=== PATIENT | female | born 2000 | race Caucasian/White ===

== ENCOUNTER 2024-05-30 13:04 | Outpatient (AMB) | payer OTHER, SELFPAY ==
[2024-05-30 13:10] VITALS: BMI 35.3
--- NOTE | 2024-05-30 13:10 | A.OFFVIS_ITS ---
VS Expanded 05/30/24 13:10 06/05/24 11:12 Height 5 ft 3 in 5 ft 3 in Weight 199 lb 1.239 oz 199 lb BMI 35.3 35.2 Intake Visit Reasons: OBESITY/CONFIRMED Nutrition Presentation Details: Pt presents for MNT for obesity. The Pt presents with the mom during this appt. The Pt was referred by Dr. Olivier Sequeira, from [facility] Pt and mom reports Pt had brain surgery in 2013 (due to hematoma ), prior to surgery Pt was at 110 lbs and reports that after surgery weight increased to 200lbs, both Pt and mom reports weight gain related to binge eating. Pt denies vomiting or other means of purging Pt reports in the past was taking ? vivonex but was stopped due to hair loss Pt reports having pending appt with corrosion control fitter , psychiatrist ETOH- denies smoking- denies physical activity: sedentary BS Monitoring Most Recent Diabetes Results: No Data to Display EBT-Rywqeea-Rb.Jeor Equation Height: 5 ft 3 in Weight: 199 lb Resting Metabolic Rate: 1622.79 Calculated Activity Level: Sedentary Calories Needed to Maintain Weight: 1947.35 Diagnosis Nutrition problem #1: excessive energy intake As related to (etiology) #1: diagnosis As evidenced by (sign/symptom) #1: knowledge deficit of diet (statements of binge eating episodes) Monitoring/Goals Nutrition problem monitoring: level of knowledge/skill (reduction of binge eating episodes) [facility] Medical History (Updated 06/05/24 @ 11:29 by Amanda Hawk, RD, LDN) [place] Assessment & Plan Assessment & Plan (1) Obesity (BMI 30.0-34.9): Comment: 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 Code(s): E66.9 - Obesity, unspecified Category: Medical Plan: Wt: 90 Kg ( 05/2024 ) Est kcal needs as per MSJ: <2000 (40% carb, 30% protein/fat) Est fluid needs as per 25-30 ml/d: 2700 Est prot per day as per 1 g/kg bw: 90 GOAL: Work on Prevention of further weight gain by next follow up Recommend fiber intake : 8-10 g per day and gradually increase to 25-28 g per day for women and 35-38 g for men or as tolerated Recommend sodium intake per day : less than 2000 mg Educated patient on: ( R = reviewed V = verbalizes understanding N/R = needs review N/A = not applicable Today focused on listening to Pt's concerns and eating patterns, medical hx * Food sources of carbohydrate, adequate serving sizes and its role in various health conditions: R V N/R * Differences between complex carbohydrates a simple carbohydrates, role of fiber in diet: R V N/R * Lean protein sources of foods: R V NR * Differences between types of fats and role in diet (mono on saturated fat fatt y acids, saturated fatty acids, trans fats): R V N/R * Food sources of sodium in salt and healthy modifications for heart health in kidney health: R V R/V * Vitamins and minerals: R V N/R * Healthy plate method concept: R V N/R * Physical activity: Benefits a precaution: R V N/R Patient Instructions: Work on eating slowly - keep a food log with every food/beverage consumed and times of the day Replace 2 pastries with 2 fruits (150 suma vs 100 suma) Have water with meals/snacks, no sugar containing beverages Coding Level of Care Code Nutr Indiv Intake (45945) Diagnoses Obesity (BMI 30.0-34.9) E66.9 Time Spent (min) 30
[2024-06-05 11:12] VITALS: BMI 35.2
== END 2024-05-30 13:50 | disposition home or self-care (01) ==
PROVIDERS: PCP Pediatrics; Visit Provider Dietitian, Registered
DX: E66.9 Obesity, unspecified (principal)

== ENCOUNTER → 2024-05-30 13:04 | Outpatient (BNVA) | payer OTHER, SELFPAY | PROVIDERS: PCP Pediatrics; Visit Provider Dietitian, Registered | DX: E66.9 Obesity, unspecified (principal); Z68.35 Body mass index [BMI] 35.0-35.9, adult; Z71.3 Dietary counseling and surveillance | CPT/HCPCS: 97802 ==

== ENCOUNTER 2024-07-10 11:40 | Outpatient (AMB) | payer OTHER, SELFPAY ==
[2024-07-10 11:50] VITALS: BMI 35.9
--- NOTE | 2024-07-10 11:50 | MHC.AMNUTRGE ---
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 Today Pt reports she is contemplating exercise prog, -Pt drives Pt reports working on keeping a food journal on and off- forgot it today - working on mindful eating - has episodes of binge eating , no purging 2 -3 x/wk BS Monitoring Most Recent Diabetes Results: No Data to Display [facility] Medical History (Updated 07/17/24 @ 14:13 by Amanda Hawk, RD, LDN) [place] Assessment & Plan Assessment & Plan (1) Obesity (BMI 30.0-34.9): Code(s): E66.9 - Obesity, unspecified Category: Medical Plan: Wt: 90 Kg ( 05/2024 ), 92 kg (07/2024) Est kcal needs as per MSJ: <2000 (40% carb, 30% protein/fat) Est fluid needs as per 25-30 ml/d: 2700 Est prot per day as per 1 g/kg bw: 90 GOAL: Work on Prevention of further weight gain by next follow up Recommend fiber intake : 8-10 g per day and gradually increase to 25-28 g per day for women and 35-38 g for men or as tolerated Recommend sodium intake per day : less than 2000 mg Educated patient on: ( R = reviewed V = verbalizes understanding N/R = needs review N/A = not applicable Today focused on listening to Pt's concerns and eating patterns, medical hx Food sources of carbohydrate, adequate serving sizes and its role in various health conditions: R V N/R Differences between complex carbohydrates a simple carbohydrates, role of fiber in diet: R V N/R Lean protein sources of foods: R Differences between types of fats and role in diet (mono on saturated fat fatty acids, saturated fatty acids, trans fats): R V N/R Food sources of sodium in salt and healthy modifications for heart health in kidney health: R V R/V Vitamins and minerals: R V N/R Healthy plate method concept: R Physical activity: Benefits a precaution: R V N/R Patient Instructions: Reduction of pastries/cookie- by choosing a fruit instead . Engage in physical activity, walk 30 minutes daily unless otherwise specified by your doctor. Coding Level of Care Code Nutr Indiv Subseq (18918) Diagnoses Obesity (BMI 30.0-34.9) E66.9 Time Spent (min) 20
== END 2024-07-10 12:19 | disposition home or self-care (01) ==
PROVIDERS: PCP Pediatrics; Visit Provider Dietitian, Registered
DX: E66.9 Obesity, unspecified (principal)

== ENCOUNTER → 2024-07-10 11:40 | Outpatient (BNVA) | payer OTHER, SELFPAY | PROVIDERS: PCP Pediatrics; Visit Provider Dietitian, Registered | DX: E66.9 Obesity, unspecified (principal); Z68.35 Body mass index [BMI] 35.0-35.9, adult; Z71.3 Dietary counseling and surveillance | CPT/HCPCS: 97803 ==

== ENCOUNTER 2024-08-14 11:36 | Outpatient (AMB) | payer OTHER, SELFPAY ==
[2024-08-14 11:42] VITALS: BMI 34.8
--- NOTE | 2024-08-14 11:42 | A.OFFVIS_ITS ---
VS Expanded 08/14/24 11:42 Height 5 ft 3 in Weight 196 lb 6.91 oz BMI 34.8 Intake Visit Reasons: Obesity/CONFIRMED Medication List - Last Reconciled 08/22/[address], LDN lisdexamfetamine (Vyvanse) 10 mg PO DAILY Nutrition Presentation Details: Pt presents for MNT f/u for obesity. Pt reports working on keeping scheduled meal pattern 7:30 am cereal/milk or sandwich/milk 12:rice/cucumber 6:30 potato/chicken/salad snack 1-2 a day , choosing fruit or yogurt Physical activity: 10 minutes 3 times a week at home (walking dog) has gym membership Pt is on vyvanse and Pt is concerned of hair loss as this was a side effect fr om vyvanse in the past BS Monitoring Most Recent Diabetes Results: No Data to Display [facility] Medical History (Updated 07/17/24 @ 14:[address], LDN) [place] Assessment & Plan Assessment & Plan (1) Obesity (BMI 30.0-34.9): Code(s): E66.9 - Obesity, unspecified Category: Medical Plan: Wt: 90 Kg ( 05/2024 ), 92 kg (07/2024), 89 kg (09/06) Est kcal needs as per MSJ: <2000 (40% carb, 30% protein/fat) Est fluid needs as per 25-30 ml/d: 2700 Est prot per day as per 1 g/kg bw: 90 GOAL: Work on Prevention of further weight gain by next follow up Recommend fiber intake : 8-10 g per day and gradually increase to 25-28 g per day for women and 35-38 g for men or as tolerated Recommend sodium intake per day : less than 2000 mg Educated patient on: ( R = reviewed V = verbalizes understanding N/R = needs review N/A = not applicable Today focused on listening to Pt's concerns and eating patterns, medical hx * Food sources of carbohydrate, adequate serving sizes and its role in various health conditions: R V N/R * Differences between complex carbohydrates a simple carbohydrates, role of fiber in diet: R V N/R * Lean protein sources of foods: R * Differences between types of fats and role in diet (mono on saturated fat fa tty acids, saturated fatty acids, trans fats): R V N/R * Food sources of sodium in salt and healthy modifications for heart health in kidney health: R V R/V * Vitamins and minerals: R V N/R * Healthy plate method concept: R * Physical activity: Benefits a precaution: R V N/R Patient Instructions: Work on increasing walks to 30 minutes at least 3 times a week Continue with meal schedule (7:30 am breakfast, 12 pm, lunch 6: 30 pm meal , 8 pm snack ) Follow healthy plate method at lunch , including at least 3 oz of protein at lunch by reducing portion of starch and including 3 oz of chicken or 2 oz of chicken and 1 cup of milk /yogurt) Coding Level of Care Code Nutr Indiv Subseq (05507) Diagnoses Obesity (BMI 30.0-34.9) E66.9 Time Spent (min) 30
== END 2024-08-14 12:13 | disposition home or self-care (01) ==
PROVIDERS: PCP Pediatrics; Visit Provider Dietitian, Registered
DX: E66.9 Obesity, unspecified (principal)

== ENCOUNTER → 2024-08-14 11:36 | Outpatient (BNVA) | payer OTHER, SELFPAY | PROVIDERS: PCP Pediatrics; Visit Provider Dietitian, Registered | DX: E66.9 Obesity, unspecified (principal); Z68.34 Body mass index [BMI] 34.0-34.9, adult; Z71.3 Dietary counseling and surveillance | CPT/HCPCS: 97803 ==

== ENCOUNTER 2024-09-24 11:12 | Outpatient (AMB) | payer OTHER, SELFPAY ==
--- NOTE | 2024-09-24 11:51 | A.OFFVIS_ITS ---
VS Expanded 09/24/24 11:53 Height 5 ft 3 in Weight 197 lb 8.547 oz BMI 35.0 Intake Visit Reasons: obesity Nutrition Presentation Details: Pt presnts for MNT f/u for obesity Pt reports feeling more comfortable following meal schedule for the most part Has not started physical activity routine BS Monitoring Most Recent Diabetes Results: No Data to Display [facility] Medical History (Updated 07/17/24 @ 14:[address], LDN) [place] Assessment & Plan Assessment & Plan (1) Obesity (BMI 30.0-34.9): Code(s): E66.9 - Obesity, unspecified Category: Medical Plan: Wt: 90 Kg ( 05/2024 ), 92 kg (07/2024), 89 kg (09/06), 10/07 Est kcal needs as per MSJ: <2000 (40% carb, 30% protein/fat) Est fluid needs as per 25-30 ml/d: 2700 Est prot per day as per 1 g/kg bw: 90 GOAL: Work on Prevention of further weight gain by next follow up Recommend fiber intake : 8-10 g per day and gradually increase to 25-28 g per day for women and 35-38 g for men or as tolerated Recommend sodium intake per day : less than 2000 mg Educated patient on: ( R = reviewed V = verbalizes understanding N/R = needs review N/A = not applicable Today focused on listening to Pt's concerns and eating patterns, medical hx * Food sources of carbohydrate, adequate serving sizes and its role in various health conditions: R V N/R * Differences between complex carbohydrates a simple carbohydrates, role of fiber in diet: R * Lean protein sources of foods: R * Differences between types of fats and role in diet (mono on saturated fat fatty acids, saturated fatty acids, trans fats): R V N/R * Food sources of sodium in salt and healthy modifications for heart health in kidney health: R V R/V * Vitamins and minerals: R V N/R * Healthy plate method concept: R * Physical activity: Benefits a precaution: R V N/R Patient Instructions: Incorporate whole grain (brown rice or sweet potato at lunch following healthy plate method) Engage in physical activity 3 times a week for 30-45 minutes as a routine Coding Level of Care Code Nutr Indiv Subseq ([id number]) Diagnoses Obesity (BMI 30.0-34.9) E66.9 Time Spent (min) 25
[2024-09-24 11:53] VITALS: BMI 35.0
== END 2024-09-24 12:25 | disposition home or self-care (01) ==
PROVIDERS: PCP Pediatrics; Visit Provider Dietitian, Registered
DX: E66.9 Obesity, unspecified (principal)

== ENCOUNTER → 2024-09-24 11:12 | Outpatient (BNVA) | payer OTHER, SELFPAY | PROVIDERS: PCP Pediatrics; Visit Provider Dietitian, Registered | DX: E66.9 Obesity, unspecified (principal); Z68.35 Body mass index [BMI] 35.0-35.9, adult; Z71.3 Dietary counseling and surveillance | CPT/HCPCS: 97803 ==

== ENCOUNTER 2024-12-26 11:07 | Outpatient (AMB) | payer OTHER, SELFPAY ==
[2024-12-26 11:11] VITALS: BMI 35.7
--- NOTE | 2024-12-26 11:11 | A.OFFVIS_ITS ---
VS Expanded 12/26/24 11:11 Height 5 ft 3 in Weight 201 lb 8.04 oz BMI 35.7 Intake Visit Reasons: obesity Nutrition Presentation Details: Pt presents for MNT for obesity physical activity 1x/wk working on having 3 scheduled meals per day, has challenges with portion sizes BS Monitoring Most Recent Diabetes Results: No Data to Display [facility] Medical History (Updated 07/17/24 @ 14:13 by Amanda Hawk, RD, LDN) [place] Assessment & Plan Assessment & Plan (1) Obesity (BMI 30.0-34.9): Code(s): E66.9 - Obesity, unspecified Category: Medical Plan: Wt: 90 Kg ( 05/2024 ), 92 kg (07/2024), 89 kg (09/06), 10/07, 91 kg (01/08) Est kcal needs as per MSJ: <2000 (40% carb, 30% protein/fat) Est fluid needs as per 25-30 ml/d: 2700 Est prot per day as per 1 g/kg bw: 90 GOAL: Work on Prevention of further weight gain by next follow up Recommend fiber intake : 8-10 g per day and gradually increase to 25-28 g per day for women and 35-38 g for men or as tolerated Recommend sodium intake per day : less than 2000 mg Educated patient on: ( R = reviewed V = verbalizes understanding N/R = needs review N/A = not applicable Today focused on listening to Pt's concerns and eating patterns, medical hx * Food sources of carbohydrate, adequate serving sizes and its role in various health conditions: R * Differences between complex carbohydrates a simple carbohydrates, role of fiber in diet: R * Lean protein sources of foods: R * Differences between types of fats and role in diet (mono on saturated fat fatty acids, saturated fatty acids, trans fats): R V N/R * Food sources of sodium in salt and healthy modifications for heart health in kidney health: R V R/V * Vitamins and minerals: R V N/R * Healthy plate method concept: R * Physical activity: Benefits a precaution: R V N/R Patient Instructions: Continue working on having 3 balanced meals per day following healthy plate method see 2000 calorie (est) meal plan Coding Level of Care Code Nutr Indiv Subseq (07272) Diagnoses Obesity (BMI 30.0-34.9) E66.9 Time Spent (min) 20
--- OUTSIDE RECORDS SUMMARY | 2024-12-26 13:01 | XMS_ITS | Continuity of Care Document ---
Author Organization [facility] Address [address] [place] [id number]- Care Team Providers Care Auto Crane Driver Name Role Phone Hua VASQUEZ, Leonora Primary Care Physician [phone] Encounter [facility] Date(s): 12/10/24 - 12/17/24 [facility] [address] [place] [id number] Encounter Diagnosis Severe obesity (BMI 35.0-39.9) with comorbidity(Discharge Diagnosis) - 12/10/24 Attending Physician: Mary VASQUEZ Shanika Encounter Type: Office Visit Allergies, Adverse Reactions, Alerts Substance Criticality Severity Reaction Reaction Severity Status amoxicillin Active Medications clonazepam 1 mg oral tablet, disintegrating See Instructions, 1 tablet between cheek and gums prn seizure greater than 3 minutes. Two labelled bottles, # 4 tablet, 0 Refills, Maintenance, 07/20/16 4:26:45 PM EDT Start Date: 07/20/16 Status: Ordered Quantity: 4.0 Unit: tablet Repeat number: 1 dexamethasone 1 mg oral tablet 1 tablet = 1 mg, By Mouth, Once, to be taken at 11pm and blood work at 8am next day, # 1 tablet, 0 Refills, Soft Stop, 07/09/24 1:42:00 PM EDT, [facility]/pharmacy #[id number], Partial fill upon patient request ifthe prescription is for a schedule II opioid drug., 160.1, cm, 07/09/24 13:07:00 EDT, Height Start Date: 07/09/24 Status: Ordered Quantity: 1.0 Unit: tablet Repeat number: 1 Indication: Irregular menstruation, unspecified lacosamide 100 mg oral tablet 1 tablet = 100 mg, By Mouth, 2 times a day, Take with 50mg tab in PM for daily dose of 100mg in AM - 150mg in PM., # 60 tablet, 5 Refills, Maintenance, 07/11/18 4:33:50 PM EDT Start Date: 07/11/18 Stop Date: 01/07/19 Status: Ordered Quantity: 60.0 Unit: tablet Repeat number: 6 LaMICtal 25 mg oral tablet 25 mg, 1, tablet, By Mouth, 2 times a day, # 180 tablet, Refills 0, Tot. Refills 0, Maintenance, 06/01/21 3:09:00 PM EDT, Do Not Route, Partial fill upon patient request if the prescription is for a schedule II opioid drug. Start Date: 06/01/21 Status: Ordered Quantity: 180.0 Unit: tablet Repeat number: 1 Nystatin Powder Topically, 0 Refills, Maintenance Start Date: 07/09/24 Status: Ordered Repeat number: 1 PROzac 10 mg oral capsule 10 mg, 1, capsule, By Mouth, Daily, Refills 0, Maintenance, 07/09/24 1:06:00 PM EDT, Partial fill upon patient request if the prescription is for a schedule II opioid drug. Start Date: 07/09/24 Status: Ordered Repeat number: 1 Tretinoin = 22.5 mg/m2, By Mouth, 2 times a day, 0 Refills, Maintenance, 07/09/24 1:06:00 PM EDT, Partial fillupon patient request if the prescription is for a schedule II opioid drug. Start Date: 07/09/24 Status: Ordered Repeat number: 1 Vimpat 100 mg oral tablet 1 tablet = 100 mg, By Mouth, 2 times a day, 0 Refills, Maintenance, 01/15/20 3:50:00 PM EST Start Date: 01/15/20 Status: Ordered Repeat number: 1 Vitamin D3 By Mouth, 0 Refills, Maintenance, 12/29/18 2:01:23 PM EST Start Date: 12/29/18 Status: Ordered Repeat number: 1 Vyvanse 20 mg oral capsule 1 capsule = 20 mg, By Mouth, Daily in AM, # 60 capsule, 0 Refills, Maintenance, 01/07/22 3:32:00 PM EST, Capsule, [id number], Partial fill upon patient request if the prescription is for a schedule II opioid drug., 160.2, cm, 01/07/22 14:44:00 EST, Height, 76.1, kg, 01/07/22 14:44:00 EST, Dry Weight Start Date: 01/07/22 Status: Ordered Quantity: 60.0 Unit: capsule Repeat number: 1 Zepbound 2.5 mg/0.5 mL subcutaneous solution = 2.5 mg, Subcutaneous Injection, Every week, rotate injection sites, # 4 each, 3 Refills, Maintenance, 12/10/24 2:09:00 PM EST, Solution, [id number], Partial fill upon patient request if the prescription is for a schedule II opioid drug., 160.1, cm, 12/10/24 13:45:00 EST, Height Start Date: 12/10/24 Stop Date: 04/09/25 Status: Ordered Quantity: 4.0 Unit: each Repeat number: 4 Problem List Condition Confirmation Course Effective Dates Status Health St atus Informant Adjustment disorder with anxious mood Confirmed Active 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 ARAMIS (generalized anxiety disorder) Confirmed Active Brain tumor Confirmed Active Obsessive-Compulsiv e Disorders Confirmed 08/03/10 Active Separation Anxiety Disorder Confirmed 09/14/11 Active Severe obesity (BMI 35.0-39.9) with comorbidity Confirmed Active Diagnosis Diagnosis Type Effective Dates Health Status Clinical Service Informant Severe obesity (BMI 35.0-39.9) with comorbidity Discharge Diagnosis 12/10/24 Vital Signs Most recent to oldest [Reference Range]: 1 Height 160.1 cm (12/10/24 1:45 PM) Weight 93.1 kg (12/10/24 1:45 PM) Pulse Rate [55-90 bpm] 101 bpm *H* (12/10/24 1:45 PM) Body Mass Index [18.5-24.99 kg/m2] 36.32 kg/m2 *>HHI* (12/10/24 1:45 PM) Blood Pressure [90-138/55-84 mm Hg] 120/ 84mm Hg (12/10/24 1:45 PM) Blood pressure sites Arm, left (12/10/24 1:45 PM) Weight Obtained Via Bed scale (12/10/24 1:45 PM) Social History Social History Type Response Smoking Status Never smoker; Tobacc o user in household: No entered on: 03/15/18 Sex Sex Representation Female (finding) Note * Maude Christian: PERFORM Event Display: Patient Education/Instruction Authored Date: [id number] Ambulatory Adult Visit Summary [facility] [place] [facility] [address] [place] [address] Name: NOMAN MISTRY : 2000?? Visit: 12/10/2024 13:38?? Ambulatory Visit Instructions ?? Your Care Team Primary Care Provider Leonora Sequeira MD? This Visit Provider Shanika Hernandez MD Your Diagnosis Obesity Severe obesity (BMI 35.0-39.9) with comorbidity Vitals Signs Pulse Rate:??101 bpm??High Height: 160.1 cm Systolic Blood Pressure: 120 mm Hg Weight: 93.1 kg Diastolic Blood Pressure: 84 mm Hg Body Mass Index:??36.32 kg/m2??Critical ?? Body surface area: 2.03 What to do next Scheduled Follow-Up Appointments 2024 8:30 AM EDT ?? With: Suze Patel MD Where: [facility] [address] [facility] 3rd [facility], [address] [place] [id number]- Status: Pending Follow-Up Appointments Follow Up with??Shanika Hernandez MD When:??Within 3 months Why: [place] Where: [address] [place] [address]- Future Orders Cortisol Level - Routine, Once, 07/09/24 13:41:00 EDT, Future Order, [facility], Blood?? DHEA Sulfate - Routine, Once, 07/09/24 13:41:00 EDT, Future Order, [facility], Blood?? DHEA Sulfate - Routine, Once, 07/09/24 13:42:00 EDT, Future Order, [facility], Blood?? Dexamethasone Level - Routine, Once, 07/09/24 13:42:00 EDT, Future Order, [facility], Blood?? Hemoglobin A1C (Monitoring) - Routine, Once, 07/09/24 13:43:00 EDT, Within 3 Days, [facility], Blood?? Glucose Tolerance 2 Hr Std (GTT 2 Hr Std) - Routine, Once, 07/09/24 13:43:00 EDT, Within 3 Days, [facility], Blood?? Testosterone by Extraction (Testosterone, Total (female)) - Routine, Once, 07/09/24 13:45:00 EDT, Future Order, [facility], Blood?? Dexamethasone Level - Routine, Once, 12/10/24 14:02:00 EST, Future Order, [facility], Blood?? Cortisol Level - Routine, Once, 12/10/24 14:02:00 EST, Future Order, [facility], Blood?? Glucose Tolerance 2 Hr Non Std (GTT 2 Hr Non Std) - Routine, Once, 12/10/24 14:02:00 EST, Within 3 Days, [facility], Blood?? TSH - Routine, Once, 12/10/24 14:06:00 EST, Future Order, [facility], Blood?? Testosterone by Extraction (Testosterone, Total (female)) - Routine, Once, 12/10/24 14:13:00 EST, Single or Recurring Future Order, [facility], Blood?? Medications The list below reflects the information in our records and provided by you today along with any changes made during this visit. Please continue your medications until treatment is completed or stopped by your provider. If this is different from the information you have or there are other questions,please contact the prescribing provider. What How Much When Why Instructions New tirzepatide (Zepbound 2.5 mg/ 0.5 mL subcutaneous solution) 2.5 Milligram Subcutaneous Injection Every week Duration: 30 Days Refills: 3 rotate injection sites ?? Pickup at [facility]/pharmacy #[id number] Unchanged Cholecalciferol (Vitamin D3) Oral Unchanged Clonazepam (clonazepam 1 mg oral tablet, disintegrating) See instructions 1 tablet between cheek and gums prn seizure greater than 3 minutes. ?? Two labelled bottles ?? Unchanged Dexamethasone (dexamethasone 1 mg oral tablet) 1 tab(s) Oral Once Irregular periods/menstrual cycles to be taken at 11pm and blood work at 8am next day ?? Unchanged Fluoxetine (PROzac 10 mg oral capsule) 1 capsule Oral Daily Unchanged Lacosamide (lacosamide 100 mg oral tablet) 1 tab(s) Oral Twice a day Duration: 30 Days Take with 50mg tab in PM for daily dose of 100mg in AM - 150mg in PM. ?? Unchanged Lacosamide (Vimpat 100 mg oral tablet) 1 tab(s) Oral Twice a day Unchanged Lamotrigine (LaMICtal 25 mg oral tablet) 1 tab(s) Oral Twice a day Unchanged lisdexamfetamine (Vyvanse 20 mg oral capsule) 1 capsule Oral Daily in the morning Unchanged Nystatin Topical (Nystatin Powder) Topically Unchanged Tretinoin 22.5 Miligrams/Meters2 Oral Twice a day Pharmacy Information [facility]/pharmacy #[id number]: [address], [place] [id number] [phone] Test Performed Below is a partial list of the tests performed during your Visit. You may have had other tests and procedures not included in this list. Please discuss all test results with your provider. Cortisol Level?-- Results Pending -- Dexamethasone Level?-- Results Pending -- GTT 2 Hr Non Std?-- Results Pending -- Testosterone, Total (female)?-- Results Pending -- TSH?-- Results Pending -- Medications and Immunizations Administered Medications Given During Visit No medications given during this visit.?? Allergies (NKA means No Known Allergies) amoxicillin Common Emergency Awareness Tips IS IT A STROKE? Act FAST and Check for these signs: FACE Does the face look uneven? ARM Does one arm drift down? SPEECH Does their speech sound strange? TIME Call at any sign of stroke ?? Heart Attack Signs Chest discomfort: Most heart attacks involve discomfort in the center of the chest and lasts more than a few minutes, or goes away and comes back. It can feel like uncomfortable pressure, squeezing, fullness or pain. Discomfort in upper body: Symptoms can include pain or discomfort in one or both arms, back, neck, jaw or stomach. Shortness of breath: With or without discomfort. Other signs: Breaking out in a cold sweat, nausea, or lightheaded. Remember, MINUTES DO MATTER. If you experience any of these heart attack warning signs, call to get immediate medical attention! ?? Smoking can increase your chances of developing chronic health problems and can cause harmful effects to other family members in your house. If you smoke, you are strongly encouraged to quit. Please call [facility] Link at [phone] or [phone] ([phone]) or log in to [email or web address] for referrals to smoking cessation programs. ?? The National Suicide Prevention Hotline is available 06/06 if you or someone you know needs to find a reason to keep living. By calling 7-166-588-YouWeb (1939) you'll be connected to a skilled, trained counselor at a crisis center in your area. [facility] Portal You can view and manage your care through the patient portal or by using a health care navi of your choosing. [employer] is a website that allows you to securely view your medical information including your hospital discharge summary, office visit summaries, medications and follow-up visits. You can also request appointments, renew medications, and request access to your medical information using a health care navi of your choosing, or just ask a question. You can enroll at [email or web address] or register during your next office visit. [facility], in keeping with [facility] guidance, no longer requires face masks for staff, patientsor visitors in most situations. Similiar to time spent indoors at other locations, there is the chance that you were exposed to repiratory viruses during your time with us (such as flu or COVID-19). If you develop symptoms concerning for a viral respiratory infection, please seek testing (and treatment if indicated) from your medical provider or home test kit. ?? Disclaimer: The information provided is of a general nature and is intended to be used in conjunction with the recommendations and advice of your health care practitioner. Every effort has been made to ensure that the information provided is accurate and complete at the time it is provided to you however, as your needs change, or, as new information becomes available, different or additional instructions may be required. ?? If you have questions, please consult with your primary care provider or pharmacist, as appropriate. This information is not intended to serve as substitution for assessment and evaluation by a qualified health care provider. If you do not have a primary care provider, you may find a [facility] provider by calling [facility] at [phone]. Patient Care team information Care Team Personnel Name: Leonora Sequeira MD Position: Reference Physician Member Role: PCP Address: [address] [place] [address] Telecom: Care Team Related Persons Name: KAILASH MISTRY Name: CARMELA MISTRY Insurance Providers Guarantor name: NOMAN FEDE Health Plan Information #: 3 [facility] Member Number: [id number] Policy Number: NA Group Number: NA Health Plan Information #: 2 Payer: [facility] Member Number: [id number] Policy Number: NA Group Number: [id number] Health Plan Information #: 1 Payer: [employer] Member Number: [id number] Policy Number: NA Group Number: [id number]
--- OUTSIDE RECORDS SUMMARY | 2024-12-26 13:01 | XMS_ITS | Continuity of Care Document ---
Author Organization [facility] Address [address] [place] [id number]- Care Team Providers Care Input Output Clerk Name Role Phone Hua VASQUEZ, Leonora Primary Care Physician Encounter 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 ARAMIS (generalized anxiety disorder) Confirmed Active Brain tumor Confirmed Active Obese class I Confirmed Active Obsessive-Compulsiv e Disorders Confirmed 08/03/10 Active Separation Anxiety Disorder Confirmed 09/14/11 Active Severe obesity (BMI 35.0-39.9) with comorbidity Confirmed Active Social History Social History Type Response Smoking Status Never smoker; Tobacc o user in household: No entered on: 03/15/18 Sex Sex Representation Female (finding) Patient Care team information Care Team Personnel Name: Leonora Sequeira MD Position: Reference Physician Member Role: PCP Address: [address] [place] [address] Telecom: Care Team Related Persons Name: KAILASH MISTRY Name: CARMELA MISTRY Insurance Providers Guarantor name: NOMAN FEDE Health Plan Information #: 1 Payer: [employer] Member Number: NA Policy Number: NA Group Number: NA Health Plan Information #: 2 Payer: [employer] P[employer] Member Number: NA Policy Number: NA Group Number: NA Health Plan Information #: 3 Payer: [place] Member Number: NA Policy Number: NA Group Number: NA
--- OUTSIDE RECORDS SUMMARY | 2024-12-26 13:01 | XMS_ITS | Clinical Summary ---
Author Organization [address] Address [address] [place] [phone] Phone Care Team Providers Care Respiratory Scientist Name Role Phone Leonora Sequeira MD Primary Care Provider Allergies Active Allergy Reactions Criticality Noted Date Comments Amoxicillin Hives 11/03/2021 Medications tretinoin (RETIN-A) 0.01 % gel Apply topically at bedtime. Active nystatin, bulk, 10 billion unit powder Apply under breasts once daily prn for rash 4 Active lisdexamfetamin e (VYVANSE) 10 MG capsule Take by mouth. Acti ve lamoTRIgine (LaMICtal) 100 mg tablet TAKE 1 TABLET BY MOUTH EVERY DAY IN THE MORNING AND 1/2 TABLET BY MOUTH AT BEDTIME 4 Active dexAMETHasone (DECADRON) 1 mg tablet Take 1 tablet (1 mg total) by mouth. 4 Active cholecalciferol (VITAMIN D-3) 25 mcg (1,000 unit) tablet Take 1 tablet (1,000 Units total) by mouth. 1 Active Active Problems Problem Noted Date Diagnosed Date Adjustment disorder with anxious mood 09/20/2024 Central precocious puberty 09/20/2024 Class 1 obesity 09/20/2024 Gelastic seizure disorder 09/20/2024 ARAMIS (generalized anxiety disorder) 09/20/2024 Intracranial tumor 09/20/2024 Severe obesity (BMI 35.0-39.9) with comorbidity 09/20/2024 Binge eating disorder 01/23/2024 Hamartoma of hypothalamus with gelastic seizure 01/23/2024 Breast hypertrophy 11/03/2021 Separation anxiety disorder 09/14/2011 Obsessive-compulsive disorder 08/03/2010 Encounters Date Type Department Care Team Description 09/25/2024 Telephone Adult Medicine [address] [phone] Leonora Sequeira MD Forms/questionnaires from Last 3 Months Immunizations Name Administration Dates Next Due DTaP (Infanrix) 6wks to less than 7yo ,05/30/2001,06/06/2000,04/04,02/02/2000 [id number]-[id number] (Pentacel) 2mo to less than 5yo 03/03/2001,06/06/2000,04/04/2000,02/01 Hepatitis A Pediatric (Havri x; Vaqta) 12mo to less than 19yo 01/16/2018,07/14/2017 Hepatitis B (Lcnlazg-X-Tghhg , Recombivax HB-Adult) 19yo and older 09/09/2000,1999,1999 IPV Inactivated polio (Ipol) 6wks and older 12/22/2004,05/30/2001,04/04/2000,02/01 MMR, measles mumps and rubel la Live (Priorix; M-M-R II) 12mo and older 12/22/2004,12/15/2000 Meningococcal MCV4P 07/13/2016,05/14/2013 Pneumococcal Conjugate Vacci ne, 7 Valent 03/03/2001,12/15/2000,09/09/2000 Tdap Tetanus diptheria acell ular pertussis (Boostrix; Adacel) 7yo and older 09/05/2023,05/11/2011 Varicella live (Varivax) 12m o and older 12/15/2000 Medical History Medical History Date Comments Gelastic seizure (CMS/HCC) DX:Ge lastic seizure (HCC) Social History Tobacco Use Types Packs/Day Years Used Date Smoking Tobacco: Never Smokeless Tobacco: Never Alcohol Use Standard Drinks/Week Comments Not Currently 0 (1 standard drink = 0.6 oz pur e alcohol) Comments Unknown Sex and Gender Information Value Date Recorded Sex Assigned at Not on file Legal Sex Female 9:00 PM EST Gender Identity Not on file Sexual Orientation Not on file Obstetrics History Last Filed Vital Signs Vital Sign Reading Time Taken Comments Blood Pressure 98/64 07/30/2024 10:08 AM EDT Pulse 100 07/30/2024 10:08 AM EDT Temperature - - Respiratory Rate - - Oxygen Saturation - - Inhaled Oxygen Concentration - - Weight 90.7 kg (200 lb) 07/30/2024 10:08 AM EDT Height 160 cm (5' 3 ) 07/30/2024 10:08 AM EDT Body Mass Index 35.43 07/30/2024 10:08 AM EDT Plan of Treatment Upcoming Encounters Date Type Department Care Team (Late st Contact Info) Description 03/26/2025 4:00 PM EDT Office Visit Adult Medicine [facility] [address] [place] [phone] Leonora Sequeira MD [address] [place] [id number] Health Maintenance Due Date Last Done Comments HPV Vaccines (1 - 3-dose series) 2014 Cervical Cancer Screening: Pap Smear 2020 Depression Screening 12/09/2023 HIV Screening 12/09/2023 Hepatitis C Screening 12/09/2023 Social Influencers of Health Screening 12/09/2023 COVID-19 Vaccine ( season) 2024 Influenza Vaccine (#1) 2024 Cholesterol Screening (Lipid Panel) 07/20/2029 07/20/2024 DTaP,Tdap,and Td Vaccines (8 - Td or Tdap) 09/05/2033 09/05/2023, 05/11/2011, 12/22/2004, Additional history exists Hepatitis B Vaccines Completed 09/09/2000, 1999, 1999 Varicella Vaccines Aged Out 12/15/2000 No longer eligible based on patient's age to complete this topic HIB Vaccines Completed 03/03/2001, 05/15, 04/04/2000, Additional history exists Pneumococcal Vaccine: Pediatrics (0 to 5 Years) and At-Risk Patients (6 to 64 Years) Completed 03/03/2001, 12/15/2000, 09/09/2000 IPV Vaccines Completed 12/22/2004, 05/14, 03/03/2001, Additional history exists MMR Vaccines Completed 12/22/2004, 12/15/2000 Meningococcal ACWY Vaccine Completed 07/13/2016, Hepatitis A Vaccines Completed 01/16/2018, 07/14/20 17 RSV Immunization Patients Under 20 months Aged Out No longer eligible based on patient's age to complete this topic Insurance MED[place] - [place] [employer] Care Teams Respiratory Scientist Relationship Specialty Start Date End Date Leonora Sequeira MD [address] [place] [id number] PCP - General Internal Medicine 11/23/24
--- OUTSIDE RECORDS SUMMARY | 2024-12-26 13:01 | XMS_ITS | Clinical Summary ---
Author Organization [facility] Address [address] [place] [address] Care Team Providers Care Cyber Policy And Strategy Planner Name Role Phone Ethan Otero Tali Primary Care Provider [phone] Allergies Active Allergy Reactions Criticality Noted Date Comments Amoxicillin Hives 11/03/2021 Medications Vimpat 100 mg tablet 1 Active cholecalciferol (VITAMIN D3) 1,000 unit tablet 1 Active lamoTRIgine (LaMICtal) 25 mg tablet 1 Active Vyvanse 20 mg capsule 1 Active mupirocin (BACTROBAN) 2% ointment 1 Active nystatin (MYCOSTATIN) 100,000 unit/gram powder 1 Active triamcinolone acetonide (KENALOG) 0.1% cream 1 Active doxycycline monohydrate (MONODOX) 100 mg capsuleIndicatio ns:Folliculitis Take 1 capsule (100 mg total) by mouth 2 times a day. 20 capsule 1 Active Additional Information Patient not taking.Reported on 06/08/2022 Ear Drops, carbamide peroxide, 6.5 % otic solution 10 drops 2 times a day. 2 Active Anti-Dandruff 1 % shampoo Apply topically to the affected area daily as needed. 2 Active Active Problems Problem Noted Date Diagnosed Date Breast hypertrophy 11/03/2021 Social History Tobacco Use Types Packs/Day Years Used Date Smoking Tobacco: Never Assessed Comments Unknown Sex and Gender Information Value Date Recorded Sex Assigned at Not on file Legal Sex Female 9:54 AM EDT Gender Identity Not on file Sexual Orientation Not on file Last Filed Vital Signs Vital Sign Reading Time Taken Comments Blood Pressure - - Pulse - - Temperature - - Respiratory Rate - - Oxygen Saturation - - Inhaled Oxygen Concentration - - Weight 75.8 kg (167 lb) 06/08/2022 3:16 PM EDT Height 160 cm (5' 3 ) 06/08/2022 3:16 PM EDT Body Mass Index 29.58 06/08/2022 3:16 PM EDT Plan of Treatment Health Maintenance Due Date Last Done Comments HIV Screening 1999 Hepatitis C Screening 1999 Pap Smear 1999 Varicella Vaccines (2 of 2 - 2-dose childhood series) 2003 12/15/2000 HPV Vaccines (1 - 3-dose series) 2014 Chlamydia Screening 2015 Hepatitis B Vaccines (1 of 3 - 19+ 3-dose series) 2018 DTaP,Tdap,and Td Vaccines (7 - Td or Tdap) 05/11/2021 05/11/2011, 12/22/2004, 05/30/2001, Additional history exists Depression Screening and Follow-Up 11/14/2023 COVID-19 Vaccine (1 - 2023-2 5 season) 2024 Influenza Vaccine (#1) 2024 Alcohol/Substance Use Screening 11/14/2024 RSV Vaccine (60+ years old a nd patients) (1 - 1-dose 75+ series) 2074 Pneumococcal Vaccine: Pediat edwin (0-5 Years) and At-Risk Patients (6-64 Years) Completed 03/03/2001, 12/15/2000, 09/09/2000 Insurance [employer] [facility] Care Teams Cyber Policy And Strategy Planner Relationship Specialty Start Date End Date Ethan Otero [address] [address] [place] [phone] PCP - General Pediatrics 11/03/21
--- OUTSIDE RECORDS SUMMARY | 2024-12-26 13:01 | XMS_ITS | Referral Summary ---
Author Organization [facility] Address [address] [place] [address] Care Team Providers Care Clock And Watch Assembler Name Role Phone Ethan Otero Tali Primary Care Provider [phone] Allergies Active Allergy Reactions Criticality Noted Date [...] 06/08/2022 3:16 PM EDT Plan of Treatment Not on file Insurance [facility] Care Teams Clock And Watch Assembler Relationship Specialty Start Date End Date Ethan Otero [address] [place] [address] [place] [phone] PCP - General Pediatrics 11/03/21
== END 2024-12-26 11:50 | disposition home or self-care (01) ==
PROVIDERS: PCP Pediatrics; Visit Provider Dietitian, Registered
DX: E66.9 Obesity, unspecified (principal)

== ENCOUNTER → 2024-12-26 11:07 | Outpatient (BNVA) | payer OTHER, SELFPAY | PROVIDERS: PCP Pediatrics; Visit Provider Dietitian, Registered | DX: E66.9 Obesity, unspecified (principal); Z68.35 Body mass index [BMI] 35.0-35.9, adult; Z71.3 Dietary counseling and surveillance | CPT/HCPCS: 97803 ==

== ENCOUNTER 2025-03-06 12:27 | Outpatient (AMB) | payer OTHER, SELFPAY ==
--- NOTE | 2025-03-06 12:43 | A.OFFVIS_ITS ---
VS Expanded 03/06/25 12:44 Height 5 ft 3 in Weight 201 lb 0.985 oz BMI 35.6 Intake Visit Reasons: Obesity Nutrition Presentation Details: Pt presents for MNT for obesity Pt reports working on having 3 meals/day as a routine B: 2 waffles with banana and nutella L: white rice/quinoa , broccoli mixed (cucumber avocado eggs) Dinner: pasta meal with chicken and vegetables or soup with veg and beef snack on fruits, dry cereal , working on lessening sugary/empty suma BS Monitoring Most Recent Diabetes Results: No Data to Display [facility] Medical History (Updated 07/17/24 @ 14:[address], LDN) [place] Assessment & Plan Assessment & Plan (1) Obesity (BMI 30.0-34.9): Code(s): E66.9 - Obesity, unspecified Category: Medical Plan: Wt: 90 Kg ( 05/2024 ), 92 kg (07/2024), 89 kg (09/06), 10/07, 91 kg (01/08), 03/08 Est kcal needs as per MSJ: <2000 (40% carb, 30% protein/fat) Est fluid needs as per 25-30 ml/d: 2700 Est prot per day as per 1 g/kg bw: 90 GOAL: Work on Prevention of further weight gain by next follow up Recommend fiber intake : 8-10 g per day and gradually increase to 25-28 g per day for women and 35-38 g for men or as tolerated Recommend sodium intake per day : less than 2000 mg Educated patient on: ( R = reviewed V = verbalizes understanding N/R = needs review N/A = not applicable Today focused on listening to Pt's concerns and eating patterns, medical hx * Food sources of carbohydrate, adequate serving sizes and its role in various health conditions: R * Differences between complex carbohydrates a simple carbohydrates, role of fiber in diet: R * Lean protein sources of foods: R * Differences between types of fats and role in diet (mono on saturated fat fatty acids, saturated fatty acids, trans fats): R V N/R * Food sources of sodium in salt and healthy modifications for heart health in kidney health: R V R/V * Vitamins and minerals: R V N/R * Healthy plate method concept: R * Physical activity: Benefits a precaution: R Patient Instructions: Engage in physical activity 30 minutes daily as a routine Continue to reduce on sugars (pastries/cookies) Coding Level of Care Code Nutr Indiv Subseq (81578) Diagnoses Obesity (BMI 30.0-34.9) E66.9 Time Spent (min) 30
[2025-03-06 12:44] VITALS: BMI 35.6
--- OUTSIDE RECORDS SUMMARY | 2025-03-06 14:42 | XMS_ITS | Clinical Summary ---
Author Organization [address] Address [address] [place] [phone] Phone Care Team Providers Care Captain/Check Airman Name Role Phone Leonora Sequeira MD Primary Care Provider [phone] Allergies Active Allergy Reactions Criticality Noted Date [...] with anxious mood 09/20/2024 Central precocious puberty ([facility] V24) 024 Class 1 obesity 09/20/2024 Gelastic seizure disorder ([facility] V24, [facility] V28) 09/20/2024 ARAMIS (generalized anxiety disorder) 09/20/2024 Intracranial tumor ([facility] V24, [facility] V28) Severe obesity (BMI 35.0-39. 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 (CMS/HCC V24, CMS/HCC V28) 01/23/2024 Breast hypertrophy 11/03/2021 Separation anxiety disorder 09/14/2011 Obsessive-compulsive disorder 08/03/2010 Immunizations Name Administration Dates Next Due DTaP (Infanrix) 6wks to less than 7yo ,05/30/2001,06/06/2000,04/04,02/02/2000 [id number] (Pentacel) 2mo to less than 5yo 03/03/2001,06/06/2000,04/04/2000,02/01 Hepatitis A Pediatric (Havri x; Vaqta) 12mo to less than 19yo 01/16/2018,07/14/2017 Hepatitis B (Faixsbq-S-Hgany , Recombivax HB-Adult) 19yo and older 09/09/2000,1999,1999 [...] History Medical History Date Comments Gelastic seizure (CMS/HCC V24, CMS/HCC V28) DX:Gelastic seizure ([facility]) Social History Tobacco Use Types Packs/Day Years [...] 4:00 PM EDT Office Visit Adult Medicine [address] [phone] Leonora Sequeira MD [address] [place] [phone] Health Maintenance Due Date Last Done Comments HPV Vaccines (1 - 3-dose series) 2014 Cervical Cancer Screening: Pap Smear 2020 Depression Screening 12/09/2023 HIV Screening 12/09/2023 Hepatitis C Screening 12/09/2023 Social Influencers of Health Screening 12/09/2023 COVID-19 Vaccine ( season) 2024 Influenza Vaccine (Season Ended) 2025 Cholesterol Screening (Lipid Panel) 07/20/2029 07/20/2024 DTaP,Tdap,and [...] Hepatitis A Vaccines Completed 01/16/2018, 07/14/20 17 Meningococcal B Vaccine Aged Out No l onger eligible based on patient's age to complete this topic RSV Immunization Patients Under 20 months Aged Out No longer eligible based on patient's age to complete this topic Insurance * Guarantor: Celeste Garcia Account Type Relation to Patient Date of Phone Billing Address Personal/Family Self [address] [place] [phone] MEDICAID - [place] CIG[employer] Care Teams Captain/Check Airman Relationship Specialty Start Date End Date Leonora Sequeira MD [address] [place] [phone] PCP - General Internal Medicine 11/23/24
--- OUTSIDE RECORDS SUMMARY | 2025-03-06 14:42 | XMS_ITS | Clinical Summary ---
Author Organization [facility] Address [address] [place] [address] Care Team Providers Care Assistant Plant Manager Name Role Phone Ethan Otero Tali Primary Care Provider [phone] Allergies Active Allergy Reactions Criticality Noted Date [...] Date Last Done Comments HIV Screening 1999 Pap Smear 1999 Varicella Vaccines (2 of 2 - 2-dose childhood series) 2003 12/15/2000 HPV Vaccines (1 - 3-dose series) 2014 Hepatitis B Vaccines (1 of 3 - 19+ 3-dose series) 2018 DTaP,Tdap,and Td Vaccines (7 - Td or Tdap) 05/11/2021 05/11/2011, 12/22/2004, 05/30/2001, Additional history exists COVID-19 Vaccine ( - 2023-2 5 season) 2024 Alcohol/Substance Use Screening 11/14/2024 Influenza Vaccine (Season Ended) 2025 RSV Vaccine (60+ years old a nd patients) (1 - 1-dose 75+ series) 2074 Pneumococcal Vaccine: Pediat edwin (0-5 Years) and At-Risk Patients (6-50 Years) Completed 03/03/2001, 12/15/2000, 09/09/2000 Insurance [employer] Care Teams Assistant Plant Manager Relationship Specialty Start Date End Date Ethan Otero [address] [address] [place] [phone] PCP - General Pediatrics 11/03/21
--- OUTSIDE RECORDS SUMMARY | 2025-03-06 14:42 | XMS_ITS | Data Portability ---
Author Organization [facility] [address] Address [address] [place] [address] Assessment No assessment recorded. Plan of Treatment Reminders Order Date Submit Date Provider Last Modified By Organization Details Last Modified Time Details Appointments None record ed. Lab None record ed. Referral None record ed. Procedures None record ed. Surgeries None record ed. Imaging None record ed. Medication Orders None record ed. Patient TargetsNo targets recorded. Patient InstructionsNo instructions recorded. Reason for Referral None Reported. Medical Equipment None Reported. Medications Name Sig Start Date Stop Date Status Note LastModified by Organization Details LastModified Time doxycycline hyclate 100 mg capsule TAKE 1 CAPSULE BY MOUTH TWICE A DAY WITH FOOD active Not Available Not Available No t Available ketoconazole 2 % shampoo PLEASE SEE ATTACHED FOR DETAILED DIRECTIONS active Not Available Not Available N ot Available tretinoin 0.025 % topical cream PLEASE SEE ATTACHED FOR DETAILED DIRECTIONS active Not Available Not Available N ot Available tretinoin 0.05 % topical cream PLEASE SEE ATTACHED FOR DETAILED DIRECTIONS active Not Available Not Available N ot Available sulfamethoxa zole 800 mg-trimethop rim 160 mg tablet TAKE 1 TABLET BY MOUTH TWICE A DAY WITH FOOD active Not Available Not Available No t Available triamcinolon e acetonide 0.1 % topical cream APPLY THIN COAT TO AFFECTED AREA TWICE A DAY active Not Available Not Available No t Available lamotrigine 25 mg tablet TAKE 3 TABLETS BY MOUTH EVERY DAY active Not Available Not Available No t Available mupirocin 2 % topical ointment APPLY TOPICALLY A SMALL AMOUNT TO THE AFFECTED AREA 2-3 TIMES PER DAY active Not Available Not Available No t Available nystatin 100,000 unit/gram topical powder APPLY TO AFFECTED AREA UNDER THE BREASTS DAILY AFTER SHOWERS active Not Available Not Available No t Available Vitamin D3 25 mcg (1,000 unit) capsule TAKE 1 CAPSULE BY MOUTH EVERY DAY FOR 30 DAYS active Not Available Not Available No t Available Anti-Dandruf f 1 % shampoo APPLY TOPICALLY TO AFFECTED AREA EVERY DAY NEEDED FOR DANDRUFF active Not Available Not Available No t Available Vitals None Recorded Social History None recorded. Functional Status None recorded. Mental Status None recorded. Family History Nothing Reported. Medical History No medical history recorded. Gynecological HistoryNo gynecological history recorded. Obstetrics History GPAL:G 0 P 0 0 0 0 Past Encounters Encounter ID Performer Location Encounter Start Date Encounter Closed Date Diagnosis/Indication Diagnosis SNOMED-CT Code Diagnosis ICD10 Code Diagnosis Note [id number] [place] [address] [phone] 06/13/2023 16:20:26 06/13/2023 17:03:26 History and physical examination, [facility] [id number] Z02.0 Health Concerns Section Related Observation LastModified by Organization Detai ls LastModified Time None Recorded Concern Status LastModified by Organization Details LastModified Time None Recorded Advance Directives Directive None Recorded Payers Encounter Date Sequence Insurance Name Policy Number Policy [employer] Covered Member ID [employer] Member ID Guarantor Name 06/13/2023 FEE FOR SERVICE Celeste Garcia OBGyn Episode No OBEpisode recorded.
--- OUTSIDE RECORDS SUMMARY | 2025-03-06 14:42 | XMS_ITS | Referral Summary ---
Author Organization [facility] Address [address] [place] [address] Care Team Providers Care Postal Carrier Name Role Phone Ethan Otero Tali Primary Care Provider [phone] Allergies Active Allergy Reactions Criticality Noted Date [...] Plan of Treatment Not on file Insurance [facility] Care Teams Postal Carrier Relationship Specialty Start Date End Date Ethan Otero [address] [address] [place] [phone] PCP - General Pediatrics 11/03/21
== END 2025-03-06 13:14 | disposition home or self-care (01) ==
LOC: HO.ENCR 12:28
PROVIDERS: PCP Pediatrics; Visit Provider Dietitian, Registered
DX: E66.9 Obesity, unspecified (principal)

== ENCOUNTER → 2025-03-06 12:27 | Outpatient (BNVA) | payer OTHER, SELFPAY | PROVIDERS: PCP Pediatrics; Visit Provider Dietitian, Registered | DX: E66.9 Obesity, unspecified (principal); Z68.35 Body mass index [BMI] 35.0-35.9, adult; Z71.3 Dietary counseling and surveillance | CPT/HCPCS: 97803 ==

== ENCOUNTER 2025-04-22 14:04 | Outpatient (AMB) | payer OTHER, SELFPAY ==
--- NOTE | 2025-04-22 14:06 | A.OFFVIS_ITS ---
VS Expanded 04/22/25 14:13 Height 5 ft 3 in Weight 192 lb 10.944 oz BMI 34.1 Intake Visit Reasons: Obesity Medication List - Last Reconciled 05/06/[address], LDN lisdexamfetamine (Vyvanse) 10 mg PO DAILY semaglutide (Ozempic) 0.25 mg subcut QWEEK Nutrition Presentation Details: Pt presents for MNT f/u for obesity Pt reports having started ozempic (3rd week) and is helping with reducing appetite. Pt acknowledges importance of meal routine and working on portion control typical meal times 8, 12, 7 pm 8 am : alternates between a protein shake or waffle with cottage cheese/fruit and water Lunch : rice (3 c) , salad with egg and cheese and avocado, dinner starch/veg/prot snack:yogurt, ice cream, fruit , crackers whole grain rice with veg, zucchini and salad kaila cucumber and boiled egg ketchup and aleman or ran supper 6-7 pm buckwheat chicken, water started ozempic 3 wks ago physical activity : 55 min on treadmill (3.2 speed) 4- 5 times/wk [facility] Medical History (Updated 07/17/24 @ 14:[address], LDN) [place] Assessment & Plan Assessment & Plan (1) Obesity (BMI 30.0-34.9): Code(s): E66.9 - Obesity, unspecified Category: Medical Plan: Wt: 90 Kg ( 05/2024 ), 92 kg (07/2024), 89 kg (09/06), 10/07, 91 kg (01/08), 03/08, 88 kg (05/08, on ozempic) Est kcal needs as per MSJ: <2000 (40% carb, 30% protein/fat) Est fluid needs as per 25-30 ml/d: 2600 Est prot per day as per 1 g/kg bw: 90 GOAL: Work on Prevention of further weight gain by next follow up Recommend fiber intake : 8-10 g per day and gradually increase to 25-28 g per day for women and 35-38 g for men or as tolerated Recommend sodium intake per day : less than 2000 mg Educated patient on: ( R = reviewed V = verbalizes understanding N/R = needs review N/A = not applicable Today focused on listening to Pt's concerns and eating patterns, medical hx * Food sources of carbohydrate, adequate serving sizes and its role in various health conditions: R * Differences between complex carbohydrates a simple carbohydrates, role of fiber in diet: R * Lean protein sources of foods: R * Differences between types of fats and role in diet (mono on saturated fat fatty acids, saturated fatty acids, trans fats): R * Food sources of sodium in salt and healthy modifications for heart health in kidney health: R V R/V * Vitamins and minerals: R V N/R * Healthy plate method concept: R * Physical activity: Benefits a precaution: R Patient Instructions: Continue working on 3 meals/day (25-30 g lean protein and 45 g carb/fiber rich foods ) snack less than 20 g carb/12 g prot (fruit/1 string cheese as example) keep hydrated by having water with meals Coding Level of Care Code Nutr Indiv Subseq (49936) Diagnoses Obesity (BMI 30.0-34.9) E66.9 Time Spent (min) 30
[2025-04-22 14:13] VITALS: BMI 34.1
--- OUTSIDE RECORDS SUMMARY | 2025-04-22 16:03 | XMS_ITS | Clinical Summary ---
Author Organization [address] Address [address] [place] [phone] Phone Care Team Providers Care Central Supply Assistant Name Role Phone Leonora Sequeira MD Primary Care Provider [phone] Allergies Active Allergy Reactions Criticality Noted Date Comments Amoxicillin Hives 11/03/2021 Medications tretinoin (RETIN-A) 0.01 % gel Apply topically at bedtime. Active lamoTRIgine (LaMICtal) 100 mg tablet TAKE 1 TABLET BY MOUTH EVERY DAY IN THE MORNING AND 1/2 TABLET BY MOUTH AT BEDTIME 06/07/20 24 Active cholecalcifero l (VITAMIN D-3) 25 mcg (1,000 unit) tablet Take 1 tablet (1,000 Units total) by mouth. 06/04/20 21 Active clindamycin (CLEOCIN T) 1 % lotion APPLY TO THE INFLAMED LESIONS ON THE FACE, CHEST, AND BACK IN THE MORNING SPOT TREATMENT. 10/08/20 24 Active nystatin (MYCOSTATIN) 100,000 unit/gram powder Apply to affected area as needed twice a day 60 g 03/26/20 25 Active sulfamethoxazo le-trimethopri m (BACTRIM DS,SEPTRA DS) 800-160 mg per tablet Take 1 tablet by mouth 2 (two) times a day with meals. 60 tablet 03/26/20 25 Active nystatin, bulk, 10 billion unit powder Apply under breasts once daily prn for rash 06/07/20 24 025 Discontinued lisdexamfetami ne (VYVANSE) 10 MG capsule Take by mouth. 025 Discontinued( erapy completed) dexAMETHasone (DECADRON) 1 mg tablet Take 1 tablet (1 mg total) by mouth. 07/09/20 24 025 Discontinued(Th erapy completed) sulfamethoxazo le-trimethopri m (BACTRIM DS,SEPTRA DS) 800-160 mg per tablet Take 1 tablet by mouth 2 (two) times a day with meals. 08/22/20 025 Discontinued(Re order) Active Problems Problem Noted Date Diagnosed Date Adjustment disorder with anxious mood 09/20/2024 Central precocious puberty ([facility] V24) 024 Class 1 obesity 09/20/2024 Gelastic seizure disorder ([facility] V24, [facility] V28) 09/20/2024 ARAMIS (generalized anxiety disorder) 09/20/2024 Intracranial tumor ([facility] V24, [facility] V28) Severe obesity (BMI 35.0-39. 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 ([facility] V24, [facility] V28) 01/23/2024 Breast hypertrophy 11/03/2021 Separation anxiety disorder 09/14/2011 Obsessive-compulsive disorder 08/03/2010 Encounters Date Type Department Care Team Description 03/26/2025 4:00 PM EDT Office Visit Adult Medicine [address] [phone] Leonora Sequeira MD PE (physical exam), annual (Primary Dx); Screening for cervical cancer; Acne, unspecified acne type from Last 3 Months Immunizations Name Administration Dates Next Due DTaP (Infanrix) 6wks to less than 7yo ,05/30/2001,06/06/2000,04/04,02/02/2000 [id number] (Pentacel) 2mo to less than 5yo 03/03/2001,06/06/2000,04/04/2000,02/01 Hepatitis A Pediatric (Havri x; Vaqta) 12mo to less than 19yo 01/16/2018,07/14/2017 Hepatitis B (Tsmmice-I-Hrmmp , Recombivax HB-Adult) 19yo and older 09/09/2000,1999,1999 IPV Inactivated polio (Ipol) 6wks and older 12/22/2004,05/30/2001,04/04/2000,02/01 MMR, measles mumps and rubel la Live (Priorix; M-M-R II) 12mo and older 12/22/2004,12/15/2000 Meningococcal MCV4P 07/13/2016,05/14/2013 Pneumococcal Conjugate Vacci ne, 7 Valent 03/03/2001,12/15/2000,09/09/2000 Tdap Tetanus diptheria acell ular pertussis (Boostrix; Adacel) 7yo and older 09/05/2023,05/11/2011 Varicella live (Varivax) 12m o and older 11/09/2023,12/15/2000 Medical History Medical History Date Comments Gelastic seizure (CMS/[facility] V24, CMS/HCC V28) DX:Gelastic seizure ([facility]) Social History Tobacco Use Types Packs/Day Years [...] Sign Reading Time Taken Comments Blood Pressure 106/80 03/26/2025 4:10 PM EDT Pulse 84 03/26/2025 4:10 PM EDT Temperature 36.6 ??C (97.8 ??F) 03/26/2025 4:10 PM ED T Respiratory Rate 14 03/26/2025 4:10 PM EDT Oxygen Saturation 98% 03/26/2025 4:10 PM EDT Inhaled Oxygen Concentration - - Weight 91.6 kg (202 lb) 03/26/2025 4:10 PM EDT Height 160 cm (5' 3 ) 03/26/2025 4:10 PM EDT Body Mass Index 35.78 03/26/2025 4:10 PM EDT Plan of Treatment Upcoming Encounters Date Type Department Care Team (Late st Contact Info) Description 04/01/2026 3:00 PM EDT Office Visit Adult Medicine [address] [phone] Leonora Sequeira MD [address] [place] [id number] Health Maintenance Due Date Last Done Comments HPV Vaccines (1 - 3-dose series) 2014 Cervical Cancer Screening: Pap Smear 2020 HIV Screening 12/09/2023 Hepatitis C Screening 12/09/2023 Social Influencers of Health Screening 12/09/2023 COVID-19 Vaccine ( season) 2024 Influenza Vaccine (Season Ended) 2025 Depression Screening 03/28/2026 03/28/2025 Cholesterol Screening (Lipid Panel) 07/20/2029 07/20/2024 DTaP,Tdap,and Td Vaccines (8 - Td or Tdap) 09/05/2033 09/05/2023, 05/11/2011, 12/22/2004, Additional history exists Hepatitis B Vaccines Completed 09/09/2000, 1999, 1999 HIB Vaccines Completed 03/03/2001, 05/15, 04/04/2000, Additional history exists Pneumococcal Vaccine: Pediatrics (0 to 5 Years) and At-Risk Patients (6 to 64 Years) Completed 03/03/2001, 12/15/2000, 09/09/2000 IPV Vaccines Completed 12/22/2004, 05/14, 03/03/2001, Additional history exists MMR Vaccines Completed 12/22/2004, 12/15/2000 Meningococcal ACWY Vaccine Completed 07/13/2016, Hepatitis A Vaccines Completed 01/16/2018, 07/14/20 17 Varicella Vaccines Aged Out 11/09/2023, 12/15/2000 No longer eligible based on patient's age to complete this topic Meningococcal B Vaccine Aged Out No l onger eligible based on patient's age to complete this topic RSV Immunization Patients Under 20 months Aged Out No longer eligible based on patient's age to complete this topic Insurance [place] - [place] [employer] Care Teams Central Supply Assistant Relationship Specialty Start Date End Date Leonora Sequeira MD [address] [place] [id number] PCP - General Internal Medicine 11/23/24
== END 2025-04-22 14:35 | disposition home or self-care (01) ==
LOC: HO.ENCR 14:05
PROVIDERS: PCP Pediatrics; Visit Provider Dietitian, Registered
DX: E66.9 Obesity, unspecified (principal)

== ENCOUNTER → 2025-04-22 14:04 | Outpatient (BNVA) | payer OTHER, SELFPAY | PROVIDERS: PCP Pediatrics; Visit Provider Dietitian, Registered | DX: E66.9 Obesity, unspecified (principal); Z68.34 Body mass index [BMI] 34.0-34.9, adult; Z71.3 Dietary counseling and surveillance | CPT/HCPCS: 97803 ==

== ENCOUNTER 2025-09-26 14:17 | Outpatient (AMB) | payer OTHER, SELFPAY ==
[2025-09-26 14:44] VITALS: BMI 31.4
--- NOTE | 2025-09-26 14:44 | A.OFFVIS_ITS ---
VS Expanded 09/26/25 14:44 Height 5 ft 3 in Weight 177 lb 0.4 oz BMI 31.4 Intake Visit Reasons: Obesity Nutrition Presentation Details: Pt presents for MNT f/u obesity Pt on mounjaro 5 mg for the last 3 month Pt reports feeling comfortable, working on having an meal routine and choosing healthier food options and my fully reducing on sugary foods. Patient had acknowledges increasing physical activity keeping occupied with non Food related activities helps reducing empty calorie foods Participating in the gym 3 to 4 times a week : Walking 30-40 minutes Breakfast typically have homemade muffin and some tea lunch : sand with aleman cheese/turkey/avocado , water Rice, chicken, salad with olive oil sometimes as fruits , water or tea light snack (fruits, smoothies Sometimes may have a meal replacement Denies having constipation or diarrhea PFSH Medical History (Updated 07/17/24 @ 14:[address], LDN) [place] Assessment & Plan Assessment & Plan (1) Obesity (BMI 30.0-34.9): Code(s): E66.9 - Obesity, unspecified Category: Medical Plan: Wt: 90 Kg ( 05/2024 ), 92 kg (07/2024), 89 kg (09/06), 10/07, 91 kg (01/08), 03/08, 88 kg (05/08, on mounjaro started), 80 kg (10/08 Est kcal needs as per MSJ: <2000 (40% carb, 30% protein/fat) Est fluid needs as per 25-30 ml/d: 2600 Est prot per day as per 1 g/kg bw: 90 GOAL: Work on Prevention of further weight gain by next follow up Recommend fiber intake : 8-10 g per day and gradually increase to 25-28 g per day for women and 35-38 g for men or as tolerated Recommend sodium intake per day : less than 2000 mg Educated patient on: ( R = reviewed V = verbalizes understanding N/R = needs review N/A = not applicable Today focused on listening to Pt's concerns and eating patterns, medical hx * Food sources of carbohydrate, adequate serving sizes and its role in various health conditions: R * Differences between complex carbohydrates a simple carbohydrates, role of fiber in diet: R * Lean protein sources of foods: R * Differences between types of fats and role in diet (mono on saturated fat fatty acids, saturated fatty acids, trans fats): R * Food sources of sodium in salt and healthy modifications for heart health in kidney health: R V R/V * Vitamins and minerals: R * Healthy plate method concept: R * Physical activity: Benefits a precaution: R Patient Instructions: * Keep hydrated 8-10 cups/water/low sugar beverages * have 3 small meals/day 2-3 oz of protein in with each meals (example 1 egg and 1 slice of turkey and 1 cup of milk + non starchy vegetables and about a cup of starches include starchy veggies) Coding Level of Care Code Nutr Indiv Subseq (78263) Diagnoses Obesity (BMI 30.0-34.9) E66.9 Time Spent (min) 30
--- OUTSIDE RECORDS SUMMARY | 2025-09-26 17:41 | XMS_ITS | Clinical Summary ---
Author Organization [address] Address [address] [place] [phone] Phone Care Team Providers Care Printed Circuit Layout Taper Name Role Phone Leonora Sequeira MD Primary Care Provider [phone] Allergies Active Allergy Reactions Criticality Noted Date Comments Amoxicillin Hives 11/03/2021 Medications tretinoin (RETIN-A) 0.01 % gel Apply topically at bedtime. Active lamoTRIgine (LaMICtal) 100 mg tablet TAKE 1 TABLET BY MOUTH EVERY DAY IN THE MORNING AND 1/2 TABLET BY MOUTH AT BEDTIME 4 Active cholecalciferol (VITAMIN D-3) 25 mcg (1,000 unit) tablet Take 1 tablet (1,000 Units total) by mouth. 1 Active clindamycin (CLEOCIN T) 1 % lotion APPLY TO THE INFLAMED LESIONS ON THE FACE, CHEST, AND BACK IN THE MORNING SPOT TREATMENT. 4 Active nystatin (MYCOSTATIN) 100,000 unit/gram powder Apply to affected area as needed twice a day 60 g 5 Active sulfamethoxazol e-trimethoprim (BACTRIM DS,SEPTRA DS) 800-160 mg per tablet Take 1 tablet by mouth 2 (two) times a day with meals. 60 tablet 5 Active Active Problems Problem Noted Date Diagnosed Date Adjustment disorder with anxious mood 09/20/2024 Central precocious puberty (CMS/HCC V24) 024 Class 1 obesity 09/20/2024 Gelastic seizure disorder (CMS/HCC V24, CMS/HCC V28) 09/20/2024 ARAMIS (generalized anxiety disorder) 09/20/2024 Intracranial tumor (CMS/HCC V24, CMS/HCC V28) Severe obesity (BMI 35.0-39. 9) with comorbidity ([facility] V24, [facility] V28) 09/20/2024 Binge eating disorder 01/23/2024 [place] of hypothalamus wi th gelastic seizure ([facility] V24, [facility] V28) 01/23/2024 Breast hypertrophy 11/03/2021 Separation anxiety disorder 09/14/2011 Obsessive-compulsive disorder 08/03/2010 Immunizations Immunization Administration Dates Next Due DTaP (Infanrix) 6wks to less than 7yo ,05/30/2001,06/06/2000,04/04,02/02/2000 PNiR-FZD-POI (Pentacel) 2mo to less than 5yo 03/03/2001,06/06/2000,04/04/2000,02/01 Hepatitis A Pediatric (Havri x; Vaqta) 12mo to less than 19yo 01/16/2018,07/14/2017 Hepatitis B (Tgaxkbk-Y-Lbagu , Recombivax HB-Adult) 19yo and older 09/09/2000,1999,1999 [...] History Medical History Date Comments Gelastic seizure ([facility] V24, [facility] V28) DX:Gelastic seizure ([facility]) Social History Tobacco Use Types [...] 84 03/26/2025 4:10 PM EDT Temperature 36.6 C (97.8 F) 03/26/2025 4:10 PM EDT Respiratory Rate 14 03/26/2025 4:10 PM EDT [...] 3:00 PM EDT Office Visit Adult Medicine [address] [phone] Leonora Sequeira MD [address] [place] [address] Health Maintenance Due Date Last Done Comments HPV Vaccines (1 - 3-dose series) 2014 Cervical Cancer Screening: Pap Smear 2020 HIV Screening 12/09/2023 Hepatitis C Screening 12/09/2023 Social Influencers of Health Screening 12/09/2023 COVID-19 Vaccine ( season) 2025 Influenza Vaccine (#1) 2025 Cholesterol Screening (Lipid Panel) 07/20/2029 07/20/2024 DTaP,Tdap,and Td Vaccines (8 - Td or Tdap) 09/05/2033 09/05/2023, 05/11/2011, 12/22/2004, Additional history exists RSV Immunization Adult Patients (1 - 1-dose 75+ series) 2074 Hepatitis B Vaccines Completed 09/09/2000, 1999, 1999 HIB Vaccines Completed 03/03/2001, 05/15, 04/04/2000, Additional history exists Pneumococcal Vaccine: Pediatrics (0 to 5 Years) and At-Risk Patients (6 to 49 Years) Completed 03/03/2001, 12/15/2000, 09/09/2000 IPV Vaccines Completed 12/22/2004, 05/14, 03/03/2001, Additional history exists MMR Vaccines Completed 12/22/2004, 12/15/2000 Meningococcal ACWY Vaccine Completed 07/13/2016, Hepatitis A Vaccines Completed 01/16/2018, 07/14/20 17 Varicella Vaccines Aged Out 11/09/2023, 12/15/2000 No longer eligible based on patient's age to complete this topic Depression Screening Completed 03/28/2025 Meningococcal B Vaccine Aged Out No l onger eligible based on patient's age to complete this topic RSV Immunization Patients Under 20 months Aged Out No longer eligible based on patient's age to complete this topic Insurance MEDICAID - [place] [employer] Care Teams Printed Circuit Layout Taper Relationship Specialty Start Date End Date Leonora Sequeira MD [address] [place] [phone] PCP - General Internal Medicine 11/23/24
--- OUTSIDE RECORDS SUMMARY | 2025-09-26 17:41 | XMS_ITS | Clinical Summary ---
Author Organization [facility] Address [address] [place] [address] Phone Care Team Providers Care Human Resources Coordinator Name Role Phone Paige Botello Primary Care Provider Unavail able Ethan Otero MD Unavailable Unavailable Paige Botello Unavailable Unavailable Social History Tobacco Use Types Packs/Day Years Used Date Smoking Tobacco: Never Assessed Comments Unknown Sex and Gender Information Value Date Recorded Sex Assigned at Not on file Legal Sex Female 4:12 PM EDT Gender Identity Not on file Sexual Orientation Not on file Plan of Treatment Not on file Care Teams Human Resources Coordinator Relationship Specialty Start Date End Date Paige Botello PCP - General 01/08/20 Ethan Otero MD PCP - Insurance PCP 02/08/06 Paige Botello PCP - Clinical PCP 01/08/20
--- OUTSIDE RECORDS SUMMARY | 2025-09-26 17:41 | XMS_ITS | Clinical Summary ---
Author Organization [facility] Address [address] [place] [address] Care Team Providers Care Form Presser Name Role Phone Ethan Otero Tali Primary Care Provider Allergies Active Allergy Reactions [...] 05/11/2021 05/11/2011, 12/22/2004, 05/30/2001, Additional history exists Alcohol/Substance Use Screening 11/14/2024 COVID-19 Vaccine (1 - 2024-2 6 season) 2025 Influenza Vaccine (#1) 2025 Pneumococcal Vaccine: Pediat edwin (0-5 Years) and At-Risk Patients (6-50 Years) Completed 03/03/2001, 12/15/2000, 09/09/2000 Insurance [facility] Care Teams Form Presser Relationship Specialty Start Date End Date Ethan Otero [address] [address] [place] [phone] PCP - General Pediatrics 11/03/21
== END 2025-09-26 15:07 | disposition home or self-care (01) ==
LOC: HO.ENCR 14:18
PROVIDERS: PCP Pediatrics; Visit Provider Dietitian, Registered
DX: E66.9 Obesity, unspecified (principal)

== ENCOUNTER → 2025-09-26 14:17 | Outpatient (BNVA) | payer OTHER, SELFPAY | PROVIDERS: PCP Pediatrics; Visit Provider Dietitian, Registered | DX: Z71.3 Dietary counseling and surveillance (principal); E66.9 Obesity, unspecified | CPT/HCPCS: 97803 ==